=== PATIENT | male | born 1965 | race Caucasian/White ===

== ENCOUNTER 2020-07-23 21:44 | Emergency (ER) | payer MEDICAID ==
[~2020-07-23] VITALS: Ht 180.3 cm; Wt 91.0 kg
[~2020-07-23 21:44] MED LIST: NO MEDS
[2020-07-23 21:58] VITALS: BP 111/64
== END 2020-07-23 22:55 | disposition home or self-care (01) ==
LOC: ER 21:44
DX: G47.00 Insomnia, unspecified (principal)
CPT/HCPCS: 99283

== ENCOUNTER 2024-06-19 15:51 | Emergency (ER) | payer MEDICAID ==
[~2024-06-19] VITALS: Ht 180.3 cm; Wt 91.0 kg
[~2024-06-19 15:51] MED LIST changes: +TRAZ150T78 MT
[2024-06-19 16:03] VITALS: O2SAT 97
[2024-06-19 16:34] VITALS: BP 148/81; PULSE 70; RESP 16; TEMP 98.9
== END 2024-06-19 16:34 | disposition home or self-care (01) ==
LOC: ER 15:51
DX: R50.9 Fever, unspecified (principal); R53.83 Other fatigue; Z20.822 Contact with and (suspected) exposure to COVID-19
CPT/HCPCS: 87426; 87804; 99283